=== PATIENT | male | born 1960 | race Caucasian/White ===

== ENCOUNTER → 2017-09-06 17:56 | Outpatient (CLI) | payer BC | END | disposition home or self-care (01) | LOC: D.LABREF 17:56 | DX: R31.9 Hematuria, unspecified (principal) ==

== ENCOUNTER → 2020-01-03 09:36 | Outpatient (CLI) | payer BC | END | disposition home or self-care (01) | LOC: D.MRI 09:36 | PROVIDERS: ATTEND Orthopaedic Surgery | DX: M25.572 Pain in left ankle and joints of left foot (principal) ==